=== PATIENT | female | born 1945 | race Caucasian/White ===

== ENCOUNTER → 2017-02-02 | Day surgery (SDC) | payer OTHER ==
[~2017-02-02] VITALS: Ht 165.1 cm; Wt 84.8 kg
[~2017-02-02] MED LIST: ACETAMINOPHEN 1000 MG/100 ML VIAL IV ONE; AMIT50 PO; ASPI81CH CHEW; ASPI81TA82 PO; ATOR1TAB18 PO; ATOR80TA PO; CHLORHEXIDINE GLUCONATE 2 % 1 PACK (2 CLOTHS) TOPICAL PRN; DEXAMETHASONE SOD PHOS 4 MG/ML VIAL ONE; DICLOFENAC SODIUM 37.5 MG/ML VIAL IV PUSH ONE; DO NOT ADM ANY ANTICOAGULANT DRUGS PRN; FAMOTIDINE 20 MG/2 ML VIAL ONE; FENO160T PO; FENO1TAB76 PO; FERRIC SUBSULFATE 8 ML TOP SOLN ONE; GABA600T PO; GLIP2.5T2 PO; HUMSS; INSULIN HUMAN REGULAR 1,000 UNITS/10 ML VIAL SQ PRN; KETOROLAC TROMETHAMINE 30 MG/ML (IVP) VIAL IV PUSH PRN; KETOROLAC TROMETHAMINE 30 MG/ML (IVP) VIAL ONE; LACTATED RINGER'S 1000 ML INJ 1,000 ML IV ONE; LACTATED RINGER'S 1000 ML IV PRN; LANTUS2P SC; LANTUS2P SQ; LEVO112T2 PO; LEVO75TA3 PO; LIOT25TA3 PO; LIOT5 PO; METF500 PO; METO25 PO; METO25TA3 PO; METOPROLOL TARTRATE 25 MG TAB PO PRN; MIDAZOLAM HCL 2 MG/2 ML VIAL ONE; MULT-142 PO; NOVOLOGP2 SQ; ONDANSETRON HCL 4 MG/2 ML VIAL IV PUSH ONE; PANT40TA3 PO; PLAV75TA29 PO; POVIDONE IODINE 5% (ANTISEPSIS KIT) 4 APPLICATIONS EACH NARE PRN; PRED1SUS LEFT EYE; PROPOFOL 200 MG/20 ML AMP IV ONE; PROT40TA PO; REGL10TA5 PO; REST0.05 EACH EYE; SODIUM CHLORID 0.9% 500 ML IV PRN; VALI5TAB PO
[2017-02-02 11:00] VITALS: BP 134/65; PULSE 62; RESP 16; TEMP 97.1; O2SAT 97
[2017-02-02 15:38] VITALS: BP 133/58; PULSE 58; RESP 18; TEMP 97.8; O2SAT 99
--- NOTE | 2017-02-02 23:28 | MP ---
cc: NIRMAL HAYES MD, KELLY L. MD DATE OF SURGERY: 02/02/2017 PREOPERATIVE DIAGNOSIS: 1. Postmenopausal bleeding. 2. Thickened endometrial stripe. 3. History of endometrial polyps POSTOPERATIVE DIAGNOSIS 1. Postmenopausal bleeding. 2. Thickened endometrial stripe. 3. History of endometrial polyps PROCEDURE Examination under anesthesia, fractional dilation and curettage. SURGEON Vaishnavi Larsen MD. 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 ANESTHESIA: Laryngeal mask anesthesia ESTIMATED BLOOD LOSS 30 cc HISTORY The patient is a 71 year-old female who has a history of endometrial polyps, has been doing fine until recently. She was started on Plavix. The cause factor is unclear but she started having some bleeding soon thereafter. She has been followed with periodic ultrasound that showed a thickened endometrial stripe and she is known to have a history of endometrial polyps. She also has stable cystic adnexal masses. She was counseled regarding these findings and the need to further evaluate and address the bleeding. She is in favor of that and presents now for dilation and curettage. FINDINGS Uterine cavity sounds to 8 cm. The cervix was already partially dilated and there was a mild amount of blood coming from the os. Upon curetting of the endocervix and lower uterine segment, there are small polypoid fragments and upon curetting of the endometrium there were multiple small polypoid fragments that had the appearance grossly of endometrial polyps. At the conclusion of the case all surfaces of the uterus and cervix were gritty in feedback. Polyp forceps were used to remove and retract all polypoid fragments and subsequent curetting again confirmed the gritty surfaces circumferentially with no additional tissue. DESCRIPTION OF PROCEDURE: The patient taken to the operating room, placed in dorsal lithotomy position. After laryngeal mask anesthesia was administered time-out was undertaken. The patient was identified by sight, recognition and hospital ID bracelet and the proposed procedure was reviewed and confirmed. She was carefully positioned in [facility]. Examination under anesthesia was performed with findings as described above. Time-out had been undertaken where the proposed procedure was reviewed. She was prepped and draped in sterile fashion. In and out catheterization of the bladder was performed. Cervix was grasped with a tenaculum, countertraction of the uterine cavity was sounded, endocervical curetting was performed, multiple passes circumferentially in the endocervix, tissue was combined as endocervical curetting. The cervix was then dilated and then a medium-sized curette was used circumferentially curetting with findings as described above. Multiple passes, tissue was combined as endometrial curettings. Endometrial polyp forceps were then used to remove and retract any remaining tissue and then subsequent curetting was performed with no residual tissue detected. The tenaculum was removed. The endocervix and tenaculum sites were rendered hemostatic with topical Monsel's solution. There were no remaining foreign objects in the vagina. Preliminary and final counts were correct. She was returned to dorsal supine position and was pending reversal of anesthesia when I left the operating room to precede her to the Post Anesthesia Care Unit. MD ANTHONY Andrews/JENNIFER /2:08 PM /11:22 PM
== END | disposition home or self-care (01) ==
LOC: HSDC 10:26
PROVIDERS: ATTEND Obstetrics & Gynecology Gynecologic Oncology
DX: N95.0 Postmenopausal bleeding (principal); N84.0 Polyp of corpus uteri; R93.8 Abnormal findings on diagnostic imaging of other specified body structures; E11.9 Type 2 diabetes mellitus without complications; I25.2 Old myocardial infarction; E05.90 Thyrotoxicosis, unspecified without thyrotoxic crisis or storm; K31.84 Gastroparesis; H40.9 Unspecified glaucoma; E07.9 Disorder of thyroid, unspecified; Z79.4 Long term (current) use of insulin; Z79.84 Long term (current) use of oral hypoglycemic drugs
CPT/HCPCS: 00940; 58120; 82948; 86850; 86900; 86901; 88305; J0131; J1100; J1130; J1885; J2250; J2405; J3010; J7120